=== PATIENT | female | born 1975 | race African-American/Black ===

== ENCOUNTER 2017-11-24 08:28 | Inpatient (IN) | payer MEDICAID, OTHER ==
[~2017-11-24] VITALS: Ht 182.9 cm; Wt 79.8 kg
[2017-11-24 08:52] VITALS: BP 100/60
[2017-11-24 08:55] LABS: HEMATOCRIT 22.1 % (37.0-47.0); HEMOGLOBIN 7.2 G/DL (12.0-16.0); MEAN CORPUSCULAR VOLUME 96 FL (80-99); PLATELET COUNT 214 K/UL (150-450); RED CELL DISTRIBUTION WIDTH 12.6 % (11.6-14.8); WHITE BLOOD COUNT 7.6 K/UL (4.8-10.8)
[2017-11-24 09:10] LABS: ANION GAP 10 mmol/L (5-15); BLOOD UREA NITROGEN 11 mg/dL (7-18); CALCIUM 8.4 MG/DL (8.5-10.1); CARBON DIOXIDE 23 MMOL/L (21-32); CHLORIDE 106 MMOL/L (98-107); CREATININE 0.9 MG/DL (0.55-1.30); POTASSIUM 3.8 MMOL/L (3.5-5.1); SODIUM 139 MMOL/L (136-145)
[2017-11-24 09:15] LABS: ALANINE AMINOTRANSFERASE 14 U/L (12-78); ALBUMIN 3.3 G/DL (3.4-5.0); ALBUMIN/GLOBULIN RATIO 0.9 (1.0-2.7); ALKALINE PHOSPHATASE 56 U/L (46-116); ASPARTATE AMINO TRANSFERASE 13 U/L (15-37); BILIRUBIN,TOTAL 0.2 MG/DL (0.2-1.0)
--- NOTE | 2017-11-24 09:20 | Emergency Room Report ---
History of Present Illness General Chief Complaint: Female Urogenital Problems Source: Patient Present Illness HPI 42-year-old female presents ED for evaluation. Patient states she's been having increased vaginal bleeding for the last 2 days. States that she nearly passed out. Patient states that she's had recent episodes of vaginal bleeding. Has had workup at [facility]. Told she was anemic and has been prescribed iron pills. Patient states that she did have a Pap smear which is concerning for cervical cancer. Is scheduled for biopsy soon. Family history of cancer. Denies any abdominal pain. Denies any blood thinners. No other aggravating relieving factors. Denies any other associated symptoms Allergies: Coded Allergies: No Known Allergies (Unverified , 11/24/17) Patient History Past Medical History: none Past Surgical History: none Pertinent Family History: none Social History: Denies: smoking, alcohol use, drug use Now: No Immunizations: UTD Reviewed Nursing Documentation: PMH: Agreed; PSxH: Agreed Nursing Documentation-PMH Past Medical History: No Stated History Review of Systems All Other Systems: negative except mentioned in HPI Physical Exam Vital Signs Date Time Temp Pulse Resp B/P (MAP) Pulse Ox O2 Delivery O2 Flow Rate FiO2 11/24/17 08:26 98.4 106 16 100/60 98 Room Air 98.4 Sp02 EP Interpretation: reviewed, normal General Appearance: no apparent distress, alert, GCS 15, non-toxic Head: normocephalic, atraumatic Eyes: bilateral eye normal inspection, bilateral eye PERRL ENT: hearing grossly normal, normal pharynx, no angioedema, normal voice Neck: full range of motion, supple/symm/no masses Respiratory: chest non-tender, lungs clear, normal breath sounds, speaking full sentences Cardiovascular #1: regular rate, rhythm, no edema Cardiovascular #2: 2+ carotid (R), 2+ carotid (L), 2+ radial (R), 2+ radial (L) , 2+ dorsalis pedis (R), 2+ dorsalis pedis (L) Gastrointestinal: normal bowel sounds, non tender, soft, non-distended, no guarding, no rebound Rectal: deferred Genitourinary: normal inspection, no CVA tenderness Musculoskeletal: back normal, gait/station normal, normal range of motion, non- tender Neurologic: alert, oriented x3, responsive, motor strength/tone normal, sensory intact, speech normal Psychiatric: judgement/insight normal, memory normal, mood/affect normal, no suicidal/homicidal ideation Reflexes: 3+ bicep (R), 3+ bicep (L), 3+ tricep (R), 3+ tricep (L), 3+ knee (R) , 3+ knee (L) Skin: normal color, no rash, warm/dry, well hydrated Lymphatic: no adenopathy Medical Decision Making Diagnostic Impression: Primary Impression: Dysfunctional uterine bleeding Additional Impression: Anemia Qualified Codes: D64.9 - Anemia, unspecified ER Course Hospital Course 42-year-old female presents ED complaining of increased vaginal bleeding. Feeling weak. Differential diagnoses include: anemia, fibroids, DUB Clinical course Patient placed on stretcher. After initial history and physical I ordered labs , IVFs Labs- hemoglobin 7.2. Electrolytes okay, no leukocytosis IV fluids given. PRBCs ordered. Discussed findings with patient. Patient currently having outpatient workup for abnormal bleeding. Had a Pap smear which was abnormal. Scheduled for biopsy. Currently on iron for anemia Patient admitted to Dr. Bowers Diagnosis - DUB, anemia Admitted to floor in serious condition Labs Test 11/24/17 08:35 11/24/17 10:23 White Blood Count 7.6 K/UL (4.8-10.8) Red Blood Count 2.30 M/UL (4.20-5.40) Hemoglobin 7.2 G/DL (12.0-16.0) Hematocrit 22.1 % (37.0-47.0) Mean Corpuscular Volume 96 FL (80-99) Mean Corpuscular Hemoglobin 31.2 PG (27.0-31.0) Mean Corpuscular Hemoglobin Concent 32.5 G/DL (32.0-36.0) Red Cell Distribution Width 12.6 % (11.6-14.8) Platelet Count 214 K/UL (150-450) Mean Platelet Volume 5.4 FL (6.5-10.1) Neutrophils (%) (Auto) % (45.0-75.0) Lymphocytes (%) (Auto) % (20.0-45.0) Monocytes (%) (Auto) % (1.0-10.0) Eosinophils (%) (Auto) % (0.0-3.0) Basophils (%) (Auto) % (0.0-2.0) Differential Total Cells Counted 100 Neutrophils % (Manual) 78 % (45-75) Lymphocytes % (Manual) 20 % (20-45) Monocytes % (Manual) 2 % (1-10) Eosinophils % (Manual) 0 % (0-3) Basophils % (Manual) 0 % (0-2) Band Neutrophils 0 % (0-8) Platelet Estimate Adequate Platelet Morphology Normal Hypochromasia 1+ Prothrombin Time 10.2 SEC (9.30-11.50) Prothromb Time International Ratio 1.0 (0.9-1.1) Activated Partial Thromboplast Time 24 SEC (23-33) Sodium Level 139 MMOL/L (136-145) Potassium Level 3.8 MMOL/L (3.5-5.1) Chloride Level 106 MMOL/L (98-107) Carbon Dioxide Level 23 MMOL/L (21-32) Anion Gap 10 mmol/L (5-15) Blood Urea Nitrogen 11 mg/dL (7-18) Creatinine 0.9 MG/DL (0.55-1.30) Estimat Glomerular Filtration Rate > 60 mL/min (>60) Glucose Level 202 MG/DL (74-106) Calcium Level 8.4 MG/DL (8.5-10.1) Total Bilirubin 0.2 MG/DL (0.2-1.0) Aspartate Amino Transf (AST/SGOT) 13 U/L (15-37) Alanine Aminotransferase (ALT/SGPT) 14 U/L (12-78) Alkaline Phosphatase 56 U/L (46-116) Total Protein 6.9 G/DL (6.4-8.2) Albumin 3.3 G/DL (3.4-5.0) Globulin 3.6 g/dL Albumin/Globulin Ratio 0.9 (1.0-2.7) Lipase 115 U/L (73-393) Last Vital Signs Date Time Temp Pulse Resp B/P (MAP) Pulse Ox O2 Delivery O2 Flow Rate FiO2 11/24/17 08:52 98.4 16 100/60 98 Room Air 98.4 11/24/17 08:26 106 Status: improved Disposition: ADMITTED INPATIENT Condition: Serious Referrals: NOT CHOSEN IPA/,REFERRING (PCP) Alfredo Wilson MD Nov 24, 2017 09:20
[2017-11-24] MEDS ORDERED: IRON159 MG PO (10:09)
[2017-11-24 10:43] LABS: APPEARANCE,URINE SLIGHTLY CLOUDY; BILIRUBIN, URINE NEGATIVE (NEGATIVE); GLUCOSE, URINE (UA) NEGATIVE (NEGATIVE); KETONES,URINE 1+ (NEGATIVE); LEUKOCYTE ESTERASE ,URINE 1+ (NEGATIVE); NITRITE,URINE NEGATIVE (NEGATIVE); PH,URINE 7 (4.5-8.0); PROTEIN,URINE 3+ (NEGATIVE); UROBILINOGEN,URINE NORMAL MG/DL (0.0-1.0)
[2017-11-24 10:55] LABS: COLOR,URINE YELLOW
[2017-11-24 11:00] VITALS: BP 107/59
[2017-11-24] MEDS ORDERED: Morphine Sulfate 4mg/ml Inj IVP ONE (11:00)
[2017-11-24 11:03] VITALS: BP 96/61
[2017-11-24 11:52] LABS: LACTATE DEHYDROGENASE 184 U/L (81-234)
[2017-11-24 12:15] LABS: % IRON SATURATION 4 % (15-50); IRON 14 ug/dL (50-175); TOTAL IRON BINDING CAPACITY 361 ug/dL (250-450)
[2017-11-24] MEDS ORDERED: Mylanta II UD 30ml ORAL PRN (12:30)
[2017-11-24] MEDS ORDERED: Morphine Sulfate 4mg/ml Inj IVP PRN (12:30)
[2017-11-24] MEDS ORDERED: LORazepam Inj 2mg/ml 1ml IV PRN (12:30)
[2017-11-24 16:00] VITALS: BP_SYST 101; BP_DIAS 61; BP_DIAS 65
--- NOTE | 2017-11-24 16:00 | History and Physical ---
History of Present Illness General Reason for Hospitalization: Female Urogenital Problems Present Illness Allergies: Coded Allergies: No Known Allergies (Unverified , 11/24/17) Medication History Miscellaneous Medications Ferrous Sulfate, Dried (Iron), Unknown Dose PO, (Reported) Patient History Healthcare decision maker Resuscitation status Full Code Advanced Directive on File Physical Exam Last 24 Hour Vital Signs Date Time Temp Pulse Resp B/P (MAP) Pulse Ox O2 Delivery O2 Flow Rate FiO2 11/24/17 11:03 97.9 16 96/61 98 Room Air 97.9 11/24/17 11:03 98.4 11/24/17 11:00 98.1 87 18 107/59 100 Room Air 98.1 11/24/17 08:52 98.4 16 100/60 98 Room Air 98.4 11/24/17 08:26 98.4 106 16 100/60 98 Room Air 98.4 Laboratory Tests Test 11/24/17 08:35 11/24/17 10:23 White Blood Count 7.6 K/UL (4.8-10.8) Red Blood Count 2.30 M/UL (4.20-5.40) L Hemoglobin 7.2 G/DL (12.0-16.0) L Hematocrit 22.1 % (37.0-47.0) L Mean Corpuscular Volume 96 FL (80-99) Mean Corpuscular Hemoglobin 31.2 PG (27.0-31.0) H Mean Corpuscular Hemoglobin Concent 32.5 G/DL (32.0-36.0) Red Cell Distribution Width 12.6 % (11.6-14.8) Platelet Count 214 K/UL (150-450) Mean Platelet Volume 5.4 FL (6.5-10.1) L Neutrophils (%) (Auto) % (45.0-75.0) Lymphocytes (%) (Auto) % (20.0-45.0) Monocytes (%) (Auto) % (1.0-10.0) Eosinophils (%) (Auto) % (0.0-3.0) Basophils (%) (Auto) % (0.0-2.0) Differential Total Cells Counted 100 Neutrophils % (Manual) 78 % (45-75) H Lymphocytes % (Manual) 20 % (20-45) Monocytes % (Manual) 2 % (1-10) Eosinophils % (Manual) 0 % (0-3) Basophils % (Manual) 0 % (0-2) Band Neutrophils 0 % (0-8) Platelet Estimate Adequate Platelet Morphology Normal Hypochromasia 1+ Erythrocyte Sedimentation Rate 88 MM/HR (0-20) H Reticulocyte Count 1.3 % (0.0-2.0) Prothrombin Time 10.2 SEC (9.30-11.50) Prothromb Time International Ratio 1.0 (0.9-1.1) Activated Partial Thromboplast Time 24 SEC (23-33) Sodium Level 139 MMOL/L (136-145) Potassium Level 3.8 MMOL/L (3.5-5.1) Chloride Level 106 MMOL/L (98-107) Carbon Dioxide Level 23 MMOL/L (21-32) Anion Gap 10 mmol/L (5-15) Blood Urea Nitrogen 11 mg/dL (7-18) Creatinine 0.9 MG/DL (0.55-1.30) Estimat Glomerular Filtration Rate > 60 mL/min (>60) Glucose Level 202 MG/DL (74-106) H Calcium Level 8.4 MG/DL (8.5-10.1) L Iron Level 14 ug/dL (50-175) L Total Iron Binding Capacity 361 ug/dL (250-450) Percent Iron Saturation 4 % (15-50) L Unsaturated Iron Binding 347 ug/dL (112-346) H Total Bilirubin 0.2 MG/DL (0.2-1.0) Aspartate Amino Transf (AST/SGOT) 13 U/L (15-37) L Alanine Aminotransferase (ALT/SGPT) 14 U/L (12-78) Alkaline Phosphatase 56 U/L (46-116) Lactate Dehydrogenase 184 U/L (81-234) Total Protein 6.9 G/DL (6.4-8.2) Albumin 3.3 G/DL (3.4-5.0) L Globulin 3.6 g/dL Albumin/Globulin Ratio 0.9 (1.0-2.7) L Lipase 115 U/L (73-393) Vitamin B12 Level 577 PG/ML (193-986) Folate 14.0 NG/ML (8.6-58.9) Urine Color Yellow Urine Appearance Slightly cloudy Urine pH 7 (4.5-8.0) Urine Specific [place] 1.010 (1.005-1.035) Urine Protein 3+ (NEGATIVE) H Urine Glucose (UA) Negative (NEGATIVE) Urine Ketones 1+ (NEGATIVE) H Urine Occult Blood 5+ (NEGATIVE) H Urine Nitrite Negative (NEGATIVE) Urine Bilirubin Negative (NEGATIVE) Urine Urobilinogen Normal MG/DL (0.0-1.0) Urine Leukocyte Esterase 1+ (NEGATIVE) H Urine RBC 60-80 /HPF (0 - 2) H Urine WBC 2-4 /HPF (0 - 2) Urine Squamous Epithelial Cells Few /LPF (NONE/OCC) Urine Bacteria Occasional /HPF (NONE) Urine HCG, Qualitative Negative (NEGATIVE) Height (Feet): 6 Height (Inches): 5.00 Weight (Pounds): 176 Medications Current Medications Medications (Trade) Dose Ordered Sig/Gómez Route PRN Reason Start Time Stop Time Status Last Admin Dose Admin Acetaminophen (Tylenol) 650 mg Q4H PRN ORAL fever>100.5 11/24/17 12:30 12/24/17 12:29 Al Hydroxide/Mg Hydroxide (Mylanta II) 30 ml Q6H PRN ORAL dyspepsia 11/24/17 12:30 12/24/17 12:29 Dextrose (Dextrose 50%) STAT PRN IV Hypoglycemia 11/24/17 12:30 12/24/17 12:29 Lorazepam (Ativan 2mg/ml 1ml) 0.5 mg Q4H PRN IV For Anxiety 11/24/17 12:30 12/01/17 12:29 Morphine Sulfate (Morphine Sulfate) 1 mg Q4H PRN IVP For Pain 11/24/17 12:30 12/01/17 12:29 Ondansetron HCl (Zofran) 4 mg Q6H PRN IVP Nausea & Vomiting 11/24/17 12:30 12/24/17 12:29 Polyethylene Glycol (Miralax) 17 gm HSPRN PRN ORAL Constipation 11/24/17 21:00 12/24/17 20:59 Zolpidem Tartrate (Ambien) 5 mg HSPRN PRN ORAL Insomnia 11/24/17 21:00 12/01/17 20:59 Griffin Bowers MD Nov 24, 2017 16:00
[2017-11-24 16:45] VITALS: BP 100/61
[2017-11-24 20:00] VITALS: BP 104/66
[2017-11-24] MEDS: Iron Sucrose 100 MG in NS 55 ML IV SCH (20:15)
[2017-11-24] MEDS ORDERED: Zolpidem 5mg tab ORAL PRN (21:00)
[2017-11-24] MEDS ORDERED: Miralax 17gm pkt ORAL PRN (21:00)
[2017-11-25] VITALS: BP 106/70
[2017-11-25 07:57] LABS: HEMATOCRIT 21.5 % (37.0-47.0); HEMOGLOBIN 7.3 G/DL (12.0-16.0); MEAN CORPUSCULAR VOLUME 93 FL (80-99); PLATELET COUNT 158 K/UL (150-450); RED CELL DISTRIBUTION WIDTH 13.3 % (11.6-14.8); WHITE BLOOD COUNT 6.7 K/UL (4.8-10.8)
[2017-11-25 08:00] VITALS: BP 110/70
[2017-11-25 08:29] LABS: ALANINE AMINOTRANSFERASE 11 U/L (12-78); ALBUMIN 2.9 G/DL (3.4-5.0); ALBUMIN/GLOBULIN RATIO 0.9 (1.0-2.7); ALKALINE PHOSPHATASE 43 U/L (46-116); ANION GAP 7 mmol/L (5-15); ASPARTATE AMINO TRANSFERASE 12 U/L (15-37); BILIRUBIN,TOTAL 0.5 MG/DL (0.2-1.0); BLOOD UREA NITROGEN 5 mg/dL (7-18); CALCIUM 7.6 MG/DL (8.5-10.1); CARBON DIOXIDE 26 MMOL/L (21-32); CHLORIDE 109 MMOL/L (98-107); CREATININE 0.7 MG/DL (0.55-1.30); POTASSIUM 3.3 MMOL/L (3.5-5.1); SODIUM 141 MMOL/L (136-145)
[2017-11-25 12:00] VITALS: BP 116/75
[2017-11-25 16:00] VITALS: BP 112/75
[2017-11-25 16:47] LABS: HEMATOCRIT 19.8 % (37.0-47.0); MEAN CORPUSCULAR VOLUME 92 FL (80-99); PLATELET COUNT 138 K/UL (150-450); RED BLOOD COUNT 2.15 M/UL (4.20-5.40); RED CELL DISTRIBUTION WIDTH 13.3 % (11.6-14.8); WHITE BLOOD COUNT 8.5 K/UL (4.8-10.8)
[2017-11-25 16:59] LABS: HEMOGLOBIN 6.9 G/DL (12.0-16.0)
--- NOTE | 2017-11-25 19:14 | Pulmonology Progress Note ---
Subjective Allergies: Coded Allergies: No Known Allergies (Unverified , 11/24/17) Objective Last 24 Hour Vital Signs Date Time Temp Pulse Resp B/P (MAP) Pulse Ox O2 Delivery O2 Flow Rate FiO2 11/25/17 16:00 97.5 96 20 112/75 100 97.5 11/25/17 12:00 97.9 99 20 116/75 100 97.9 11/25/17 08:00 98.1 99 20 110/70 100 98.1 11/25/17 00:00 98.0 100 20 106/70 100 98.0 11/24/17 20:00 98.1 96 21 104/66 100 98.1 Intake and Output 11/24/17 11/25/17 19:00 07:00 Intake Total 240 ml 530 ml Balance 240 ml 530 ml Intake Oral 240 ml Blood Product 530 ml # Voids 2 # Bowel Movements 1 # Sanitary Pads 5 Laboratory Tests 11/25/17 06:30: White Blood Count 6.7, Red Blood Count 2.30L, Hemoglobin 7.3L, Hematocrit 21.5L , Mean Corpuscular Volume 93, Mean Corpuscular Hemoglobin 31.9H, Mean Corpuscular Hemoglobin Concent 34.2, Red Cell Distribution Width 13.3, Platelet Count 158, Mean Platelet Volume 6.5, Neutrophils (%) (Auto) , Lymphocytes (%) ( Auto) , Monocytes (%) (Auto) , Eosinophils (%) (Auto) , Basophils (%) (Auto) , Differential Total Cells Counted 100, Neutrophils % (Manual) 60, Lymphocytes % ( Manual) 31, Monocytes % (Manual) 5, Eosinophils % (Manual) 4H, Basophils % ( Manual) 0, Band Neutrophils 0, Platelet Estimate Adequate, Platelet Morphology Normal, Polychromasia 1+, Hypochromasia 1+, Sodium Level 141, Potassium Level 3.3L, Chloride Level 109H, Carbon Dioxide Level 26, Anion Gap 7, Blood Urea Nitrogen 5L, Creatinine 0.7, Estimat Glomerular Filtration Rate > 60, Glucose Level 115H, Calcium Level 7.6L, Total Bilirubin 0.5, Aspartate Amino Transf (AST /SGOT) 12L, Alanine Aminotransferase (ALT/SGPT) 11L, Alkaline Phosphatase 43L, Total Protein 6.0L, Albumin 2.9L, Globulin 3.1, Albumin/Globulin Ratio 0.9L, Thyroid Stimulating Hormone (TSH) 1.615 11/25/17 15:45: White Blood Count 8.5, Red Blood Count 2.15L, Hemoglobin 6.9*L, Hematocrit 19.8L , Mean Corpuscular Volume 92, Mean Corpuscular Hemoglobin 32.1H, Mean Corpuscular Hemoglobin Concent 34.9, Red Cell Distribution Width 13.3, Platelet Count 138L, Mean Platelet Volume 5.9L, Neutrophils (%) (Auto) , Lymphocytes (%) (Auto) , Monocytes (%) (Auto) , Eosinophils (%) (Auto) , Basophils (%) (Auto) , Differential Total Cells Counted 100, Neutrophils % (Manual) 52, Lymphocytes % ( Manual) 39, Monocytes % (Manual) 9, Eosinophils % (Manual) 0, Basophils % ( Manual) 0, Band Neutrophils 0, Platelet Estimate DecreasedL, Platelet Morphology Normal, Polychromasia 1+, Hypochromasia 1+, Anisocytosis 1+ Current Medications Medications (Trade) Dose Ordered Sig/Gómez Route PRN Reason Start Time Stop Time Status Last Admin Dose Admin Acetaminophen (Tylenol) 650 mg Q4H PRN ORAL fever>100.5 11/24/17 12:30 12/24/17 12:29 Al Hydroxide/Mg Hydroxide (Mylanta II) 30 ml Q6H PRN ORAL dyspepsia 11/24/17 12:30 12/24/17 12:29 Dextrose (Dextrose 50%) STAT PRN IV Hypoglycemia 11/24/17 12:30 12/24/17 12:29 Iron Sucrose 100 mg/Sodium Chloride 60 ml @ 240 mls/hr BEDTIME IV 11/24/17 21:00 11/28/17 21:14 Lorazepam (Ativan 2mg/ml 1ml) 0.5 mg Q4H PRN IV For Anxiety 11/24/17 12:30 12/01/17 12:29 Morphine Sulfate (Morphine Sulfate) 1 mg Q4H PRN IVP For Pain 11/24/17 12:30 12/01/17 12:29 Ondansetron HCl (Zofran) 4 mg Q6H PRN IVP Nausea & Vomiting 11/24/17 12:30 12/24/17 12:29 Polyethylene Glycol (Miralax) 17 gm HSPRN PRN ORAL Constipation 11/24/17 21:00 12/24/17 20:59 Zolpidem Tartrate (Ambien) 5 mg HSPRN PRN ORAL Insomnia 11/24/17 21:00 12/01/17 20:59 Griffin Bowers MD Nov 25, 2017 19:14
[2017-11-25 20:00] VITALS: BP 133/83
[2017-11-25] MEDS: Iron Sucrose 100 MG in NS 55 ML IV SCH (20:18)
[2017-11-25] MEDS ORDERED: DiphenhydrAMINE 50mg/ml Inj IVP PRN (21:30)
[2017-11-25] MEDS: Solu-MEDROL 125mg Inj IVP SCH ×2 (21:39→23:14)
[2017-11-25] MEDS ORDERED: Premarin tab 0.625MG ORAL SCH (22:30)
[2017-11-26] VITALS: BP 118/68
[2017-11-26 04:00] VITALS: BP 96/57
[2017-11-26 04:42] LABS: APPEARANCE,URINE SLIGHTLY CLOUDY; BILIRUBIN, URINE 1+ (NEGATIVE); COLOR,URINE BROWN; GLUCOSE, URINE (UA) NEGATIVE (NEGATIVE); KETONES,URINE 1+ (NEGATIVE); LEUKOCYTE ESTERASE ,URINE 1+ (NEGATIVE); NITRITE,URINE NEGATIVE (NEGATIVE); PH,URINE 6 (4.5-8.0); PROTEIN,URINE 3+ (NEGATIVE); UROBILINOGEN,URINE 4 MG/DL (0.0-1.0)
[2017-11-26] MEDS: Solu-MEDROL 125mg Inj IVP SCH ×3 (05:12→18:11)
[2017-11-26 07:17] LABS: HEMATOCRIT 21.2 % (37.0-47.0); HEMOGLOBIN 7.1 G/DL (12.0-16.0); MEAN CORPUSCULAR VOLUME 95 FL (80-99); PLATELET COUNT 160 K/UL (150-450); RED BLOOD COUNT 2.24 M/UL (4.20-5.40); RED CELL DISTRIBUTION WIDTH 13.8 % (11.6-14.8); WHITE BLOOD COUNT 9.2 K/UL (4.8-10.8)
[2017-11-26 07:28] LABS: ALANINE AMINOTRANSFERASE 20 U/L (12-78); ALBUMIN 3.1 G/DL (3.4-5.0); ALBUMIN/GLOBULIN RATIO 0.9 (1.0-2.7); ALKALINE PHOSPHATASE 51 U/L (46-116); ANION GAP 6 mmol/L (5-15); ASPARTATE AMINO TRANSFERASE 42 U/L (15-37); BILIRUBIN,TOTAL 1.3 MG/DL (0.2-1.0); BLOOD UREA NITROGEN 7 mg/dL (7-18); CALCIUM 8.2 MG/DL (8.5-10.1); CARBON DIOXIDE 27 MMOL/L (21-32); CHLORIDE 107 MMOL/L (98-107); CREATININE 0.8 MG/DL (0.55-1.30); PHOSPHORUS 2.8 MG/DL (2.5-4.9); POTASSIUM 3.8 MMOL/L (3.5-5.1); SODIUM 139 MMOL/L (136-145)
[2017-11-26 07:29] LABS: BILIRUBIN,DIRECT 0.1 MG/DL (0.0-0.3)
[2017-11-26 08:00] VITALS: BP 119/76
--- NOTE | 2017-11-26 09:45 | Consultation ---
DATE OF CONSULTATION: 11/25/2017 NOTE: POOR AUDIO HEMATOLOGY/ONCOLOGY CONSULTATION CONSULTING PHYSICIAN: Clyde Ferris M.D. REQUESTING PHYSICIAN: Griffin Bowers M.D. REASON FOR CONSULTATION: Evaluation of iron-deficiency anemia, bleeding. IDENTIFICATION DATA: Dear Dr. Bowers, The patient is a pleasant 42-year-old female who is having vaginal bleeding with past medical history, which is significant for increased vaginal bleeding over the past several days. The patient nearly passed out, recurrent episodes of bleeding noted before, has had a at [facility]. The patient has been on started on iron therapy, in the past. Concerning for cervical cancer, scheduled for biopsy soon. Denies any family history of malignancy. Hematology Service consulted for further evaluation and treatment. The patient noted to have anemia as well. PAST MEDICAL HISTORY: Anemia and vaginal bleeding. PAST SURGICAL HISTORY: None noted. FAMILY HISTORY: Noncontributory. SOCIAL HISTORY: No alcohol, tobacco, or illicit drug use. ALLERGIES: No known drug allergies. REVIEW OF SYSTEMS: CONSTITUTIONAL: Some weakness noted. SKIN: No rashes, bumps, or itching. HEENT: No headache, hearing or vision changes. BREASTS: No lumps, pain, or discharge. PULMONARY: No cough, sputum, or shortness of breath. GASTROINTESTINAL: No nausea, vomiting, or diarrhea. GENITOURINARY: No dysuria, frequency, or urgency. MUSCULOSKELETAL: No joint swelling, muscle pain, or trauma. PHYSICAL EXAMINATION: VITAL SIGNS: Reviewed. GENERAL: No acute distress. PULMONARY: Decreased breath sounds. CARDIOVASCULAR: Regular rate. No S3 or S4. ABDOMEN: Soft, nontender, and nondistended. EXTREMITIES: No cyanosis, swelling, or edema. LABORATORY DATA: WBC of 8.5, hemoglobin 6.9, hematocrit 20, and platelet count 138,000. INR of 1. BUN of 5, creatinine 0.7. Iron of 14, TIBC 161. ASSESSMENT AND RECOMMENDATIONS: 1. Anemia due to vaginal bleeding that is heavy vaginal bleeding, has been started on five days of iron. IV iron has been started. Continue to closely monitor. Hemoglobin goal is above 7. Maintain hemoglobin above 7. Consider use of transfusion. 2. Thrombocytopenia, acute onset. Currently, the patient is on heparin, which has been discontinued. Closely monitor for improvement, potentially reactive process. 3. fatigue due to heavy vaginal bleeding. 4. Hypokalemia, replete potassium as needed. recommended. Dr. Bowers . 5. Dehydration, has been administered IV fluids. I appreciate the consultation. Clyde Ferris M.D. DR: OSWALDO JOB#: [id number] CC:
[2017-11-26 12:00] VITALS: BP 115/76
[2017-11-26 15:58] VITALS: BP 119/66
[2017-11-26] MEDS ORDERED: NS 275ml ONE (19:14)
[2017-11-26] MEDS ORDERED: NS 500ML ONE (19:14)
[2017-11-26 20:00] VITALS: BP 109/77
--- NOTE | 2017-11-26 23:51 | General Progress Note ---
Assessment/Plan Assessment/Plan 1. Anemia due to vaginal bleeding that is heavy vaginal bleeding, has been started on five days of iron. --> IV iron has been started. Continue to closely monitor. --> Hemoglobin goal is above 7. --> S/P blood transfusion, but hemoglobin remains low. --> Consider transfusion if hgb is below goal 2. Thrombocytopenia, acute onset. --> Currently, the patient is on heparin, which has been discontinued. --> Closely monitor for improvement, potentially reactive process. 3. Fatigue due to heavy vaginal bleeding. 4. Hypokalemia, replete potassium as needed. Seen by Dr. Bowers 5. Dehydration, has been administered IV fluids. Subjective Date patient seen: Nov 26, 2017 Constitutional: Denies: no symptoms, chills, diaphoresis, fever, malaise, weakness, other HEENT: Denies: no symptoms, eye pain, blurred vision, tearing, double vision, ear pain, ear discharge, nose pain, nose congestion, throat pain, throat swelling, mouth pain, mouth swelling, other Cardiovascular: Denies: no symptoms, chest pain, edema, irregular heart rate, lightheadedness, palpitations, syncope, other Respiratory: Denies: no symptoms, cough, orthopnea, shortness of breath, SOB with excertion, SOB at rest, sputum, stridor, wheezing, other Gastrointestinal/Abdominal: Denies: no symptoms, abdomen distended, abdominal pain, black stools, tarry stools, blood in stool, constipated, diarrhea, difficulty swallowing, nausea, poor appetite, poor fluid intake, rectal bleeding , vomiting, other Genitourinary: Denies: no symptoms, burning, discharge, frequency, flank pain, hematuria, incontinence, pain, urgency, other Neurologic/Psychiatric: Denies: no symptoms, anxiety, depressed, emotional problems, headache, numbness, paresthesia, pre-existing deficit, seizure, tingling, tremors, weakness, other Hematologic/Lymphatic: Reports: anemia Allergies: Coded Allergies: No Known Allergies (Unverified , 11/24/17) Subjective Pending blood transfusion. Hemoglobin low due to vaginal bleeding. Weak. Objective Last 24 Hour Vital Signs Date Time Temp Pulse Resp B/P (MAP) Pulse Ox O2 Delivery O2 Flow Rate FiO2 11/26/17 20:00 97.3 102 20 109/77 98 97.3 11/26/17 15:58 98.2 94 21 119/66 99 Room Air 98.2 11/26/17 12:00 97.0 95 21 115/76 99 Room Air 97.0 11/26/17 08:00 97.9 85 20 119/76 99 Room Air 97.9 11/26/17 04:00 97.6 75 20 96/57 100 97.6 11/26/17 00:00 98.6 97 20 118/68 100 98.6 Intake and Output 11/25/17 11/26/17 19:00 07:00 Intake Total 400 ml 110 ml Balance 400 ml 110 ml Intake Oral 400 ml Blood Product 110 ml # Voids 2 2 Laboratory Tests 11/26/17 04:00: Urine Color Brown, Urine Appearance Slightly cloudy, Urine pH 6, Urine Specific [place] 1.020, Urine Protein 3+H, Urine Glucose (UA) Negative, Urine Ketones 1+H , Urine Occult Blood 5+H, Urine Nitrite Negative, Urine Bilirubin 1+H, Urine Ictotest Negative, Urine Urobilinogen 4H, Urine Leukocyte Esterase 1+H, Urine RBC 40-60H, Urine WBC 5-10H, Urine Squamous Epithelial Cells Few, Urine Calcium Oxalate Crystals Occasional, Urine Bacteria Few, Urine Mucus FewH 11/26/17 05:35: White Blood Count 9.2, Red Blood Count 2.24L, Hemoglobin 7.1L, Hematocrit 21.2L , Mean Corpuscular Volume 95, Mean Corpuscular Hemoglobin 31.8H, Mean Corpuscular Hemoglobin Concent 33.6, Red Cell Distribution Width 13.8, Platelet Count 160, Mean Platelet Volume 6.7, Neutrophils (%) (Auto) , Lymphocytes (%) ( Auto) , Monocytes (%) (Auto) , Eosinophils (%) (Auto) , Basophils (%) (Auto) , Differential Total Cells Counted 100, Neutrophils % (Manual) 94H, Lymphocytes % (Manual) 3L, Monocytes % (Manual) 3, Eosinophils % (Manual) 0, Basophils % ( Manual) 0, Band Neutrophils 0, Platelet Estimate Adequate, Platelet Morphology Normal, Polychromasia 1+, Hypochromasia 1+, Prothrombin Time 10.1, Prothromb Time International Ratio 1.0, Activated Partial Thromboplast Time 22L, Sodium Level 139, Potassium Level 3.8, Chloride Level 107, Carbon Dioxide Level 27, Anion Gap 6, Blood Urea Nitrogen 7, Creatinine 0.8, Estimat Glomerular Filtration Rate > 60, Glucose Level 173H, Calcium Level 8.2L, Phosphorus Level 2.8, Magnesium Level 1.9, Total Bilirubin 1.3H, Direct Bilirubin 0.1, Aspartate Amino Transf (AST/SGOT) 42H, Alanine Aminotransferase (ALT/SGPT) 20, Alkaline Phosphatase 51, Lactate Dehydrogenase 420H, Total Protein 6.5, Albumin 3.1L, Globulin 3.4, Albumin/Globulin Ratio 0.9L Height (Feet): 6 Height (Inches): 5.00 Weight (Pounds): 176 General Appearance: agitated Cardiovascular: normal rate Respiratory/Chest: decreased breath sounds Clyde Ferris MD Nov 26, 2017 23:51
--- NOTE | 2017-11-27 08:13 | Diagnostic Imaging Report ---
APPROVED REPORT CPT Code: 85136 Present Symptoms Comments: Hx of bleeding R/O DVT BILATERAL: Imaging reveals a patent deep venous system bilaterally. There is no evidence of thrombus within the femoral, popliteal or tibial segments. The greater saphenous veins are also within normal limits. Doppler indicates normal spontaneous flow within these segments. Multiple varicose veins noted near the calf area.
--- NOTE | 2017-11-27 15:39 | Discharge Summary ---
Discharge Summary Hospital Course Date of Admission Nov 24, 2017 at 09:35 Date of Discharge Nov 26, 2017 at 19:15 Admitting Diagnosis SEVER ANEMIA,VAGINAL BLEEDING HPI Linnette Hebert is a 42 year old female who was admitted on Nov 24, 2017 at 09:35 for Severe Anemia,Vaginal Bleeding Hospital Course [id number] Discharge Discharge Disposition Patient left Dana Martinez NP Nov 27, 2017 15:39
--- NOTE | 2017-11-27 23:15 | Discharge Summary 2 SIG ---
DATE OF ADMISSION: 11/24/2017 DATE OF DISCHARGE: 11/26/2017 SIDE PANEL PADDER: Clyde Ferris M.D. BRIEF HOSPITAL COURSE: The patient is a 42-year-old female who presented to ED complaining of increased vaginal bleeding for the past two days that she nearly passed out. The patient had recent episodes of vaginal bleeding and had a workup done at [facility] where she was told to be anemic and was prescribed iron pills. She stated she had a Pap smear done that was concerning for cervical cancer. She is about to follow up for results of the biopsy soon. On evaluation at ED, she was noted to have hemoglobin of 7.2 and hematocrit was 22. There was no leukocytosis and electrolytes were normal. She was given IV fluids. She was admitted for evaluation of anemia and dysfunctional uterine bleed. She was followed by oncologist. IV iron was started. She received three units packed RBC blood transfusion. Blood culture did not isolate any growth. Full treatment was not carried out as the patient left against medical advice. FINAL DIAGNOSES: 1. Anemia due to vaginal bleed. 2. Anemia requiring blood transfusion. 3. Thrombocytopenia, acute onset. 4. Fatigue due to heavy vaginal bleed. 5. Hypokalemia. 6. Dehydration. DISPOSITION: The patient left AMA. Griffin Bowers M.D. I have been assigned to dictate discharge summary on this account and I was not involved in the patient's management. Dana Clark N.P. DR: RADHIKA JOB#: [id number] CC:
== END 2017-11-26 19:15 | disposition left against medical advice (07) | DRG 663 ==
LOC: EDBD 08:28 → EMR 09:08 → EDBEDREQ 09:14 → 4E 09:35 → EDBEDREQ 09:47
PROC: 30233N1 Transfusion of Nonautologous Red Blood Cells into Peripheral Vein, Percutaneous Approach (ICD-10-PCS; principal; 2017-11-24)
DX: D50.0 Iron deficiency anemia secondary to blood loss (chronic) (principal); D69.6 Thrombocytopenia, unspecified; N93.8 Other specified abnormal uterine and vaginal bleeding; R53.83 Other fatigue; E87.6 Hypokalemia; E86.0 Dehydration
CPT/HCPCS: 36415; 80053; 81003; 81025; 82248; 82378; 82607; 82728; 82746; 83540; 83550; 83615; 83690; 83735; 84100; 84443; 85007; 85025; 85044; 85060; 85610; 85651; 85730; 86850; 86870; 86900; 86901; 86920; 87070; 87205; 93970; 99285; J8499